=== PATIENT | female | born 1945 | race African-American/Black ===

== ENCOUNTER 2024-07-13 17:30 | Emergency (ER) | payer OTHER ==
[~2024-07-13] VITALS: Ht 175.3 cm; Wt 68.0 kg
[2024-07-13 17:34] VITALS: TEMP 97.8; O2SAT 100
[2024-07-13 18:43] LABS: EOSINOPHILS % 2.9 % (0.0-5.0); HEMATOCRIT. 35.5 % (36.0-48.0); HEMOGLOBIN. 11.7 g/dL (12.0-16.0); LYMPHOCYTES % 51.5 % (20.0-50.0); MEAN CORPUSCULAR HEMOGLOBIN 32.6 pg (28.0-32.0); MEAN CORPUSCULAR HGB CONC 33.1 g/dL (31.0-37.0); MEAN CORPUSCULAR VOLUME 98.7 fL (81.0-99.0); MEAN PLATELET VOLUME 8.8 fl (7.4-10.4); MONOCYTES % 12.1 % (2.0-8.0); NEUTROPHILS % 32.5 % (40.0-76.0); PLATELET 125 x1000/uL (130-400); RED CELL DISTRIBUTION WIDTH 13.3 % (11.6-14.6)
[2024-07-13 18:56] LABS: CHLORIDE 107 mEq/L (98-107); POTASSIUM 3.6 mEq/L (3.5-5.1); SODIUM 141 mEq/L (136-145)
[2024-07-13 18:57] LABS: CARBON DIOXIDE 28 mEq/L (21-32)
[2024-07-13 18:58] LABS: CALCIUM 9.3 mg/dL (8.7-10.4)
[2024-07-13 19:02] LABS: CREATININE 0.8 mg/dL (0.6-1.0); GLUCOSE 88 mg/dL (70-105); UREA NITROGEN BLOOD 7 mg/dL (9-23)
[2024-07-13 19:03] LABS: ETHANOL BLOOD 277 mg/dL (<10)
[2024-07-13 19:04] LABS: ALANINE AMINOTRANSFERASE 58 IU/L (10-49); ALBUMIN 4.2 g/dL (3.2-4.8); ASPARTATE AMINOTRANSFERASE 128 IU/L (<34); TROPONIN I HIGH SENSITIVITY < 4 ng/L (3.0-34)
[2024-07-13 19:05] LABS: BILIRUBIN TOTAL 0.7 mg/dL (0.1-1.0); PROTEIN TOTAL 7.1 g/dL (6.0-8.3)
[2024-07-13 19:16] LABS: PARTIAL THROMBOPLASTIN TIME 28.2 sec (23.4-31.0); PROTHROMBIN TIME 10.8 sec (9.6-11.0)
[2024-07-13 19:29] LABS: *AMPHETAMINES SCREEN URINE NEGATIVE (NEGATIVE); *BARBITURATES SCREEN URINE NEGATIVE (NEGATIVE); *BENZODIAZEPINES SCREEN URINE NEGATIVE (NEGATIVE)
[2024-07-13 19:30] LABS: *COCAINE SCREEN URINE NEGATIVE (NEGATIVE); CANNABINOID URINE SCREEN NEGATIVE (NEGATIVE); ECSTASY MDMA SCREEN URINE NEGATIVE (NEGATIVE); METHADONE URINE SCREEN NEGATIVE (NEGATIVE); OPIATES URINE SCREEN NEGATIVE (NEGATIVE); PHENCYCLIDINE URINE SCREEN NEGATIVE (NEGATIVE)
[2024-07-13] MEDS ORDERED: IOHEXOL-350 100 ML BOTTLE ONE (19:40)
[2024-07-13] MEDS: ASPIRIN 325MG EC TABLET PO ONE (20:45)
[2024-07-13] MEDS: HYDRALAZINE 20MG/ML VIAL IV NR (22:46)
[2024-07-13 22:51] VITALS: BP 173/99; PULSE 70; RESP 15; O2SAT 100
== END 2024-07-13 23:20 | disposition short-term general hospital (02) ==
LOC: ER 17:30 → EDBEDREQ 20:51 → EDBEDREQTM 20:51 → ER 23:20
DX: F10.129 Alcohol abuse with intoxication, unspecified (principal); R53.1 Weakness; R52 Pain, unspecified; Y90.8 Blood alcohol level of 240 mg/100 ml or more
CPT/HCPCS: 80053; 80305; 80320; 85025; 85610; 85730; 86850; 86900; 86901; 84484; 36415; 71045; 70496; 70498; 70450; 93005; 96374; 99285; Q9967; J0360; G0480